=== PATIENT | female | born 1950 | race Caucasian/White ===

== ENCOUNTER 2022-02-10 12:09 | Emergency (ER) | payer OTHER, MEDICARE ==
[2022-02-10] MEDS: Ibuprofen 200 MG Tab PO STA (12:59)
== END 2022-02-10 12:54 | disposition home or self-care (01) ==
LOC: VM.ED 12:09
DX: S20.219A Contusion of unspecified front wall of thorax, initial encounter (principal); Z88.2 Allergy status to sulfonamides; V49.50XA Passenger injured in collision with unspecified motor vehicles in traffic accident, initial encounter; Y92.410 Unspecified street and highway as the place of occurrence of the external cause
CPT/HCPCS: 71045; 99283; 99284; A9270